=== PATIENT | female | born 1930 | race Hispanic/Latino ===

== ENCOUNTER 2017-10-17 11:04 | Emergency (ER) | payer MEDICARE ==
[2017-10-17 11:07] VITALS: BMI 23.3
[2017-10-17 11:20] VITALS: RESP 18; TEMP 97.8
--- NOTE | 2017-10-17 12:00 | ED PDOC ---
Arrival/HPI - General Historian: Patient - History of Present Illness Time/Duration: 1-3 hours Symptom Onset: Sudden Symptom Course: Unchanged Quality: Aching Severity Level: 9 Activities at Onset: Light (walking) Context: Walking - General Chief Complaint: Trauma Time Seen by Provider: 10/17/17 11:13 - History of Present Illness Narrative History of Present Illness (Text): 10/17/17 11:52 CC: Fall HPI: Ms. Lakhani is a 87 year old female with a past medical history of atrial fibrillation on warfarin and Amiodarone, glaucoma, and subdural hematoma 1.5 years ago who presents s/p mechanical fall after exiting a cruise boat returning from [facility] with a friend. Patient was brought in by ambulance. Patient states that her rubber shoes got caught on the smooth floor and she fell forward with her right arm caught underneath her clutching her pocketbook. Patient denies losing consciousness, bowel and bladder incontinence, seizure activity, and biting her tongue. Patient reports a bloody lip and a chipped tooth. Patient also reports an inability to move her right shoulder due to pain with movement. Patient states she took her Amiodarone this morning but does not remember dose. Patient takes Warfarin in evening and has not taken her dose yet today. Denies vision changes, chest pain, palpitations, shortness of breath, and headache. 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 PMHX: atrial fibrillation on warfarin and Amiodarone, glaucoma, and subdural hematoma 1.5 years ago PSHx: bilateral hip replacements All: NKDA Social Hx: cigarettes for ayear over 30 years ago, glass of wine nightly Fam hx: colon CA in mom at age 73 Meds: Amiodarone, Levothyroxine, Warfarin PCP: Dr. Cardoza in [facility] in [place] (Clarence Pinto) Past Medical History - Provider Review Nursing Documentation Reviewed: Yes - Travel History Have you recently traveled outside [place] w/in the past 3 mons?: Yes - Infectious Disease Hx of Infectious Diseases: None - Reproductive Menopause: Yes - Cardiac Hx Angina: Yes - Pulmonary Hx Respiratory Disorders: No - Psychiatric Hx Substance Use: No - Anesthesia Hx Anesthesia Reactions: No Family/Social History - Physician Review Nursing Documentation Reviewed: Yes Family/Social History: Neoplasm/Cancer Smoking Status: Unknown If Ever Smoked Hx Alcohol Use: No Hx Substance Use: No Allergies/Home Meds Allergies/Adverse Reactions: Allergies No Known Allergies Allergy (Verified 10/17/17 11:07) Review of Systems - Physician Review All systems were reviewed & negative as marked: Yes - Review of Systems Constitutional: Normal Eyes: Normal. absent: Vision Changes ENT: Normal. absent: Hearing Changes Respiratory: Normal. absent: SOB, Cough Cardiovascular: Normal. absent: Chest Pain Gastrointestinal: Normal Genitourinary Female: Normal Musculoskeletal: Normal Skin: Skin Lesions (bruise from R shoulder) Neurological: Normal. absent: Headache, Dizziness, Gait Changes, Facial Droop Endocrine: Normal Hemo/Lymphatic: Normal Psychiatric: Normal Physical Exam Vital Signs Reviewed: Yes Temperature: Afebrile Blood Pressure: Hypertensive Pulse: Regular Respiratory Rate: Normal Appearance: Positive for: Well-Appearing, Non-Toxic, Uncomfortable Pain Distress: Severe (with movement of R shoulder) Mental Status: Positive for: Alert and Oriented X 3 - Systems Exam Head: Present: Normocephalic. No: Atraumatic (chipped front tooth, bleeding minimally from lower gum) Pupils: Present: PERRL Extroacular Muscles: Present: EOMI Conjunctiva: Present: Normal Ears: Present: Normal Mouth: Present: Moist Mucous Membranes Neck: Present: Normal Range of Motion Respiratory/Chest: Present: Clear to Auscultation, Good Air Exchange. No: Respiratory Distress, Accessory Muscle Use Cardiovascular: Present: Normal S1, S2, Irregular Rhythm, Peripheal Pulses Present. No: Murmurs Abdomen: Present: Normal Bowel Sounds. No: Tenderness, Distention, Peritoneal Signs, Rebound, Guarding Back: Present: Normal Inspection. No: CVA Tenderness, Paraspinal Tenderness Upper Extremity: Present: Swelling, Erythema (medial from R shoulder down to proximal insertion of biceps muscle), Neurovascularly Intact. No: Normal Inspection, Normal ROM, Temperature Abnormalties Lower Extremity: Present: Other (pain on R knee, no bruises, full motor strength with full ROM of flexion and extension ). No: Normal Inspection ( petechiae present, patient states chronically present), CALF TENDERNESS Neurological: Present: GCS=15, CN II-XII Intact, Speech Normal Skin: Present: Warm, Dry, Normal Color. No: Rashes Psychiatric: Present: Alert, Oriented x 3, Normal Insight, Normal Concentration Vital Signs Temp Pulse Resp BP Pulse Ox 10/17/17 16:15 66 18 152/80 H 99 10/17/17 14:23 60 18 158/87 H 97 10/17/17 13:00 68 16 162/84 H 98 10/17/17 11:19 97.8 F 60 18 181/91 H 96 Medical Decision Making ED Course and Treatment: 10/17/17 14:50 87 year old female presents to the Emergency Department for medical evaluation s /p fall. Patient seen and examined with the resident. Came up with treatment plan and disposition together. (Deuce Patrick) 10/17/17 11:35 Impression: 87 year old female with PMHX of a. fib on warfarin and amiodarone and glaucoma who presents s/p fall. Plan: CT head without contrast R Shoulder x-ray CBC CMP coag studies Tylenol 975 mg for pain 10/17/17 13:35 CT head without contrast: Possible pituitary neoplasm - enlargement of pituitary within sella turcica. No intracranial hemmorhage. Mild diffuse age- appropriate atrophy. Incidental radiopaque foreign body in soft tissues of R orbit. 10/17/17 13:47 R Shoulder x-ray: Comminuted humeral head fracture with impaction and minimal displacement. 10/17/17 14:05 Patient shoulder splinted and wrapped in preparation for discharge. Reviewed imaging results with patient in detail. Had conversation with patient regarding importance of follow up with orthopedist near home in [place] for R shoulder comminuted fracture as well as need to follow up with neurologist for surveillance and care of pituitary adenoma found on CT scan. Patient hemodynamically stable and ready for discharge home with pain medications. (Clarence Pinto) - Lab Interpretations Lab Results: 10/17/17 12:17 10/17/17 12:17 Lab Results 10/17/17 12:17: Sodium 134, Potassium 4.0, Chloride 101, Carbon Dioxide 23, Anion Gap 15, BUN 17, Creatinine 0.8, Est GFR ( Amer) > 60, Est GFR (Non- Af Amer) > 60, Random Glucose 96, Calcium 8.4, Total Bilirubin 0.4, AST 48 H, ALT 51, Alkaline Phosphatase 124, Total Protein 6.8, Albumin 4.0, Globulin 2.9, Albumin/Globulin Ratio 1.4 10/17/17 12:17: PT 34.0 H, INR 2.89, APTT 37.7 H 10/17/17 12:17: WBC 3.1 L, RBC 3.63, Hgb 11.4 L, Hct 33.6 L, MCV 92.6, MCH 31.4 , MCHC 33.9, RDW 14.6 H, Plt Count 277, MPV 9.8, Gran % 64.0, Lymph % (Auto) 27.1, [place] % (Auto) 7.5 H, Eos % (Auto) 0.7 L, Baso % (Auto) 0.7, Gran # 1.96, Lymph # (Auto) 0.8 L, [place] # (Auto) 0.2, Eos # (Auto) 0.0, Baso # (Auto) 0.02 - RAD Interpretation Radiology Orders: 10/17/17 11:43 HEAD W/O CONTRAST [CT] Stat SHOULDER RIGHT [RAD] Stat - Medication Orders Current Medication Orders: Discontinued Medications Acetaminophen (Tylenol 325mg Tab) 975 mg PO STAT STA Stop: 10/17/17 11:48 Last Admin: 10/17/17 12:12 Dose: 975 mg [facility] Pain/Vitals Document 10/17/17 12:12 MARIANA (Rec: 10/17/17 12:12 [id number] Pain Reassessment Is This A Pain ReAssessment? No Sleep Is patient sleeping during reassessment? No Presence of Pain Presence of Pain Yes Re-Assess: [facility] Pain/Vitals Document 10/17/17 13:12 MARIANA (Rec: 10/17/17 15:31 [id number] Pain Reassessment Is This A Pain ReAssessment? Yes Sleep Is patient sleeping during reassessment? No Presence of Pain Presence of Pain Yes Pain Scale Used Pain Scale Used Numeric Location Intensity 3 Scale Used Numeric Disposition/Present on Arrival - Present on Arrival Any Indicators Present on Arrival: No History of DVT/PE: No History of Uncontrolled Diabetes: No Urinary Catheter: No History of Decub. Ulcer: No History Surgical Site Infection Following: None - Disposition Have Diagnosis and Disposition been Completed?: Yes Disposition Time: 14:00 Patient Plan: Discharge - Disposition Diagnosis: Shoulder fracture, right, Pituitary adenoma Disposition: HOME/ ROUTINE Patient Problems: Current Active Problems Problem Status Onset Pituitary adenoma Acute Shoulder fracture, right Acute Condition: GOOD Discharge Instructions (ExitCare): Pituitary Adenoma, Shoulder Fracture (DC) Print Language: UKRAINIAN Additional Instructions: The CT scan of the head showed a possible enlargement of the pituitary gland within sella turcica. No intracranial hemmorhage. R Shoulder x-ray showed a Comminuted humeral head fracture with impaction and minimal displacement. Please follow up immediately with orthopedist close to home in [place] for evaluation and treatment of the comminuted fracture of your R shoulder. Please follow up with a neurologist close to home for evaluation of your pituitary enlargement. Please return to your nearest emergency department should symptoms worsen. Please take Percocet as prescribed for pain control. Please take Zofran as prescribed for nausea control. JACK LAKHANI, thank you for letting us take care of you today. Your provider was Deuce Patrick DO and you were treated for FALL. The emergency medical care you received today was directed at your acute symptoms. If you were prescribed any medication, please fill it and take as directed. It may take several days for your symptoms to resolve. Return to the Emergency Department if your symptoms worsen, do not improve, or if you have any other problems. Please contact your doctor or call one of the physicians/clinics you have been referred to that are listed on the Patient Visit Information form that is included in your discharge packet. Bring any paperwork you were given at discharge with you along with any medications you are taking to your follow up visit. Our treatment cannot replace ongoing medical care by a primary care provider outside of the emergency department. Thank you for allowing the [facility] team to be part of your care today. If you had an X-Ray or CT scan: A Radiologist will review the ED reading if any change in treatment is needed we will contact you. If you had a blood, urine, or wound culture: It will take several days for the results, if any change in treatment is needed we will contact you. If you had an STI test: It will take 48 hours for the results. Please call after 1 week if you have not heard back. Prescriptions: Ondansetron [Zofran Odt] 4 mg PO TID #15 tab.rapdis oxyCODONE/Acetaminophen [Percocet 5/325 mg Tab] 1 ea PO TID #15 tab Forms: [employer] (Malawian)
[2017-10-17 12:44] LABS: BASO # 0.02 K/mm3 (0.0-2.0); BASO % 0.7 % (0.0-3.0); EOS % 0.7 % (1.5-5.0); GRAN # 1.96 (1.4-6.5); HEMOGLOBIN 11.4 g/dL (12.0-16.0); LYMPH # 0.8 (1.2-3.4); LYMPH % 27.1 % (22.0-35.0); MEAN CELL VOLUME 92.6 fl (80.0-105.0); MEAN CORPUSCULAR HEMOGLOBIN 31.4 pg (25.0-35.0); MEAN CORPUSCULAR HGB CONC 33.9 g/dl (31.0-37.0); MEAN PLATELET VOLUME 9.8 fl (7.0-11.0); MONO # 0.2 (0.1-0.6); MONO % 7.5 % (1.0-6.0); RBC 3.63 10^6/uL (3.5-6.1); RED CELL DISTRIBUTION WIDTH 14.6 % (11.5-14.5); WHITE BLOOD COUNT 3.1 10^3/ul (4.5-11.0)
[2017-10-17 12:46] LABS: ALB/GLOB RATIO 1.4 (1.1-1.8); ALT/SGPT 51 U/L (7-56); AST/SGOT 48 U/L (14-36); BLOOD UREA NITROGEN 17 mg/dL (7-21); CALCIUM 8.4 mg/dL (8.4-10.5); GFR NON-AFRICAN AMERICAN > 60; INR 2.89; PARTIAL THROMBOPLASTIN TIME 37.7 Seconds (25.1-36.5)
--- NOTE | 2017-10-17 13:25 | CT ---
Date of service: 10/17/2017 PROCEDURE: CT HEAD WITHOUT CONTRAST. HISTORY: ? fall on head. hx of subdural hematoma COMPARISON: None available. TECHNIQUE: Axial computed tomography images were obtained through the head/brain without intravenous contrast. Radiation dose: Total exam DLP = 800.05 mGy-cm. This CT exam was performed using one or more of the following dose reduction techniques: Automated exposure control, adjustment of the mA and/or kV according to patient size, and/or use of iterative reconstruction technique. FINDINGS: HEMORRHAGE: No intracranial hemorrhage. BRAIN: There is apparent enlargement of the pituitary within the sella turcica. This may reflect a pituitary adenoma. Further evaluation is advised with gadolinium enhanced magnetic resonance imaging. There is mild diffuse age-appropriate atrophy. Minimal chronic periventricular white matter ischemic change is noted. VENTRICLES: Unremarkable. No hydrocephalus. CALVARIUM: Unremarkable. PARANASAL SINUSES: Unremarkable as visualized. No significant inflammatory changes. MASTOID AIR CELLS: Unremarkable as visualized. No inflammatory changes. OTHER FINDINGS: There is a radiopaque foreign body seen in the superior lateral preseptal soft tissues of the right orbit. No intraorbital mass or hemorrhage is appreciated. IMPRESSION: Possible pituitary neoplasm. Recommend further evaluation with gadolinium enhanced magnetic resonance imaging of the pituitary. No intracranial hemorrhage. Incidentally noted radiopaque foreign body in the preseptal superior lateral soft tissues of the right orbit.
--- NOTE | 2017-10-17 13:43 | RAD ---
Date of service: 10/17/2017 PROCEDURE: Radiographs of the Right Shoulder HISTORY: R shoulder pain from fall COMPARISON: No prior. FINDINGS: BONES: Comminuted fracture right humeral head without significant displacement. Probable impaction. No dislocation. No other fracture identified. JOINTS: As above. Acromioclavicular joint intact. SOFT TISSUES: Normal. OTHER FINDINGS: None. IMPRESSION: Comminuted humeral head fracture with impaction and minimal displacement.
[2017-10-17 17:51] VITALS: BP 152/80; PULSE 66; O2SAT 99
== END 2017-10-17 17:53 | disposition home or self-care (01) ==
LOC: ED 11:04
DX: S42.291A Other displaced fracture of upper end of right humerus, initial encounter for closed fracture (principal); W19.XXXA Unspecified fall, initial encounter; Y92.89 Other specified places as the place of occurrence of the external cause; I48.91 Unspecified atrial fibrillation; Z79.01 Long term (current) use of anticoagulants